=== PATIENT | male | born 1945 | race Caucasian/White ===

== ENCOUNTER 2018-06-20 15:00 | Inpatient (IN) | payer MEDICARE ==
[~2018-06-20] VITALS: Ht 182.9 cm; Wt 127.0 kg
[~2018-06-20 15:00] MED LIST: ASPI-611 PO; CLOP75TA15 PO; FURO40TA4 PO; ISOS30TA6 PO; NITR0.4T51 SL; POTA8TAB3 PO; TAMS0.4C32 PO
[2018-06-20] MEDS ORDERED: magnesium hydroxide 30ml (MOM) UD suspension PO PRN (15:40)
[2018-06-20] MEDS ORDERED: morphine 2 MG/ML inj. syringe IV PRN (15:40)
[2018-06-20] MEDS ORDERED: acetaminophen 325mg tablet PO PRN (15:40)
[2018-06-20] MEDS ORDERED: ondansetron/PF 4mg/2ml inj IV PRN (15:40)
[2018-06-20] MEDS ORDERED: HYDROcodone/acetaminophen 5mg/325mg tablet PO PRN (15:40)
[2018-06-20] MEDS ORDERED: mag hydrox/Alum hydrox/simeth 30ml oral suspension PO PRN (15:40)
[2018-06-20] MEDS ORDERED: nitroGLYCERIN 0.4mg SUBLingual tab SL PRN (15:50)
[2018-06-20 16:31] VITALS: BP 164/85
[2018-06-20] MEDS ORDERED: FURO20TA4 PO (16:51)
[2018-06-20] MEDS ORDERED: ZOLP10TA PO (17:26)
[2018-06-20 17:40] LABS: BASOPHILS % (AUTO) 0.3 % (0-1); EOSINOPHILS # (AUTO) 0.1 X10'3 (0-0.9); EOSINOPHILS % (AUTO) 2.1 % (0-6); HEMATOCRIT 50.2 % (42.0-52.0); LYMPHOCYTES # (AUTO) 0.9 X10'3 (1.1-4.8); LYMPHOCYTES % (AUTO) 16.1 % (21-51); MEAN CORPUSCULAR HEMOGLOBIN 30.4 PG (27.0-31.0); MEAN CORPUSCULAR HGB CONC 33.8 % (33.0-36.5); MEAN CORPUSCULAR VOLUME 89.7 FL (78-98); MEAN PLATELET VOLUME 7.6 FL (7.4-10.4); MONOCYTES # (AUTO) 0.6 X10'3 (0-0.9); MONOCYTES % (AUTO) 9.8 % (2-12); NEUTROPHILS # (AUTO) 4.1 X10'3 (1.8-7.7); NEUTROPHILS % (AUTO) 71.7 % (42-75); PLATELET COUNT 356 X10'3 (140-440); RED BLOOD COUNT 5.59 X10'6 (4.70-6.10); RED CELL DISTRIBUTION WIDTH 15.7 % (11.5-14.5); WHITE BLOOD COUNT 5.8 X10'3 (4.5-11.0)
[2018-06-20 17:58] LABS: ALANINE AMINOTRANSFERASE 26 U/L (12-78); ALBUMIN 3.5 G/DL (3.4-5.0); ALBUMIN/GLOBULIN RATIO 0.8 (1.1-1.5); ALKALINE PHOSPHATASE 87 IU/L (46-116); ANION GAP 8 (8-16); ASPARTATE AMINO TRANSFERASE 21 U/L (10-37); BILIRUBIN,TOTAL 0.9 MG/DL (0.1-1.0); BLOOD UREA NITROGEN 17 MG/DL (7-18); BUN/CREATININE RATIO 11.1 (5.4-32.0); CALCIUM 8.6 MG/DL (8.5-10.1); CHLORIDE 105 MMOL/L (99-107); CREATININE 1.53 MG/DL (0.60-1.10); GLUCOSE 90 MG/DL (70-104); MAGNESIUM 2.2 MG/DL (1.5-2.4); POTASSIUM 4.4 MMOL/L (3.5-5.1); SODIUM 140 MMOL/L (135-145); TOTAL CARBON DIOXIDE 27.5 MMOL/L (24-32); TOTAL PROTEIN 7.9 G/DL (6.4-8.2); TROPONIN I < 0.04 NG/ML (0.0-0.05); eGFR 45 ML/MIN
[2018-06-20 19:00] VITALS: BP 153/67
[2018-06-20] MEDS: aspirin 81mg tablet.DR PO SCH (20:02)
[2018-06-20 23:00] VITALS: BP 143/70
[2018-06-21] VITALS (7 sets, daily range): BP systolic 124–153; BP diastolic 46–77
[2018-06-21 05:01] LABS: BASOPHILS % (AUTO) 0.4 % (0-1); EOSINOPHILS # (AUTO) 0.2 X10'3 (0-0.9); EOSINOPHILS % (AUTO) 2.9 % (0-6); HEMATOCRIT 47.6 % (42.0-52.0); HEMOGLOBIN 16.1 g/dl (14.0-17.9); LYMPHOCYTES # (AUTO) 1.1 X10'3 (1.1-4.8); LYMPHOCYTES % (AUTO) 18.7 % (21-51); MEAN CORPUSCULAR HEMOGLOBIN 30.3 PG (27.0-31.0); MEAN CORPUSCULAR HGB CONC 33.7 % (33.0-36.5); MEAN CORPUSCULAR VOLUME 89.8 FL (78-98); MEAN PLATELET VOLUME 7.8 FL (7.4-10.4); MONOCYTES # (AUTO) 0.6 X10'3 (0-0.9); MONOCYTES % (AUTO) 9.8 % (2-12); NEUTROPHILS # (AUTO) 3.9 X10'3 (1.8-7.7); NEUTROPHILS % (AUTO) 68.2 % (42-75); PLATELET COUNT 309 X10'3 (140-440); RED BLOOD COUNT 5.31 X10'6 (4.70-6.10); RED CELL DISTRIBUTION WIDTH 15.6 % (11.5-14.5); WHITE BLOOD COUNT 5.7 X10'3 (4.5-11.0)
[2018-06-21 05:28] LABS: ALBUMIN 3.2 G/DL (3.4-5.0); ANION GAP 13 (8-16); BLOOD UREA NITROGEN 19 MG/DL (7-18); BUN/CREATININE RATIO 14.7 (5.4-32.0); CALCIUM 8.6 MG/DL (8.5-10.1); CHLORIDE 105 MMOL/L (99-107); CHOLESTEROL 194 MG/DL (0-200); CREATININE 1.29 MG/DL (0.60-1.10); GLUCOSE 115 MG/DL (70-104); HDL CHOLESTEROL 49 MG/DL (35-60); LDL CHOLESTEROL 136 MG/DL (50-100); SODIUM 142 MMOL/L (135-145); TOTAL CARBON DIOXIDE 24.1 MMOL/L (24-32); TRIGLYCERIDES 85 MG/DL (20-135); eGFR 55 ML/MIN
[2018-06-21] MEDS: aspirin 81mg tablet.DR PO SCH (08:00)
[2018-06-21] MEDS ORDERED: enoxaparin 40mg/0.4ml syringe SUBCUT SCH (08:00)
[2018-06-21] MEDS ORDERED: fentaNYL/PF 50MCG/1 ML 2ML syringe ONE (08:13)
[2018-06-21] MEDS ORDERED: midazolam 2 mg/2 ml injection ONE ×2 (08:13→09:07)
[2018-06-21] MEDS ORDERED: iohexol 350 MG/ML 50ML vial IV ONE (08:13)
[2018-06-21] MEDS ORDERED: iohexol 350MG/ML 100ml bottle IV ONE ×2 (08:13→09:28)
[2018-06-21] MEDS ORDERED: LIDOcaine 1% w/EPI 1:100,000 30ml vial (MDV) ONE (08:13)
[2018-06-21] MEDS ORDERED: heparin 1,000unit/ml 10ml vial 10 ML ONE (09:24)
[2018-06-21] MEDS ORDERED: ondansetron/PF 4mg/2ml inj ONE (09:55)
[2018-06-21] MEDS ORDERED: proCHLORperazine 10 MG/2 ml inj ONE (09:55)
[2018-06-21] MEDS ORDERED: nitroGLYCERIN-Tridil 50MG/D5W 250 ML IV ONE (09:59)
[2018-06-21] MEDS: normal saline 1000ml 1,000 ML IV SCH ×2 (11:26→16:20)
[2018-06-21] MEDS ORDERED: zolpidem 5mg tablet PO PRN (11:30)
[2018-06-21] MEDS ORDERED: isosorbide mononitrate 30mg tab.SR.24H PO SCH (12:00)
[2018-06-21] MEDS ORDERED: clopidogrel 75mg tablet PO SCH (12:00)
[2018-06-21] MEDS ORDERED: tamsulosin 0.4mg capsule PO SCH (12:00)
[2018-06-21] MEDS ORDERED: furosemide 20MG tablet PO SCH (12:00)
[2018-06-21] MEDS ORDERED: potassium chloride 8mEq ER tablet PO SCH (12:00)
[2018-06-21] MEDS ORDERED: carVEDilol 3.125mg tablet PO SCH (14:25)
[2018-06-21] MEDS ORDERED: COR3.125T PO (14:35)
[2018-06-21] MEDS ORDERED: NIAC-23 PO (14:35)
== END 2018-06-21 16:53 | disposition home or self-care (01) | DRG 247 ==
LOC: PCU 3S 15:00
PROVIDERS: ADMIT Internal Medicine; ATTEND Internal Medicine
PROC: 4A023N7 Measurement of Cardiac Sampling and Pressure, Left Heart, Percutaneous Approach (ICD-10-PCS; principal; 2018-06-21)
PROC: 027034Z Dilation of Coronary Artery, One Artery with Drug-eluting Intraluminal Device, Percutaneous Approach (ICD-10-PCS; 2018-06-21)
PROC: 02703ZZ Dilation of Coronary Artery, One Artery, Percutaneous Approach (ICD-10-PCS; 2018-06-21)
PROC: B2111ZZ Fluoroscopy of Multiple Coronary Arteries using Low Osmolar Contrast (ICD-10-PCS; 2018-06-21)
PROC: B2151ZZ Fluoroscopy of Left Heart using Low Osmolar Contrast (ICD-10-PCS; 2018-06-21)
PROC: B2131ZZ Fluoroscopy of Multiple Coronary Artery Bypass Grafts using Low Osmolar Contrast (ICD-10-PCS; 2018-06-21)
DX: T82.857A Stenosis of other cardiac prosthetic devices, implants and grafts, initial encounter (principal); I25.110 Atherosclerotic heart disease of native coronary artery with unstable angina pectoris; E66.01 Morbid (severe) obesity due to excess calories; E78.00 Pure hypercholesterolemia, unspecified; E78.5 Hyperlipidemia, unspecified; E86.0 Dehydration; I11.0 Hypertensive heart disease with heart failure; I50.9 Heart failure, unspecified; Z96.651 Presence of right artificial knee joint; Y71.3 Surgical instruments, materials and cardiovascular devices (including sutures) associated with adverse incidents; Z95.1 Presence of aortocoronary bypass graft; Z95.5 Presence of coronary angioplasty implant and graft; Z88.8 Allergy status to other drugs, medicaments and biological substances; Z79.899 Other long term (current) drug therapy; Z79.82 Long term (current) use of aspirin; Z87.891 Personal history of nicotine dependence; Z80.0 Family history of malignant neoplasm of digestive organs; Z82.0 Family history of epilepsy and other diseases of the nervous system; Z82.49 Family history of ischemic heart disease and other diseases of the circulatory system; Z68.38 Body mass index [BMI] 38.0-38.9, adult; Y92.89 Other specified places as the place of occurrence of the external cause
CPT/HCPCS: 93306; 93458; C9600; 36415; 80048; 80053; 80061; 83036; 83735; 84484; 85025; 87070; 93005; 99152; 99153; A4620; A6257; C1725; C1760; C1769; C1874; C1887; C1894; J0780; J1644; J2250; J2405; J3010; J3490; J7030; Q9967

== ENCOUNTER 2018-12-03 10:14 | Day surgery (SDC) | payer MEDICARE ==
[~2018-12-03] VITALS: Ht 182.9 cm; Wt 133.6 kg
[2018-12-03] VITALS (10 sets, daily range): BP systolic 111–121; BP diastolic 63–76
[~2018-12-03 10:14] MED LIST changes: +COR3.125T PO; +FURO20TA4 PO; -FURO40TA4 PO; +NIAC-23 PO; +ZOLP10TA PO
[2018-12-03] MEDS ORDERED: sod bicarbonate 150mEq in D5W 1,150 ML IV ONE (10:45)
[2018-12-03] MEDS ORDERED: diphenhydrAMINE 25mg capsule PO PRN (10:45)
[2018-12-03] MEDS ORDERED: ISOS30TA6 PO (11:00)
[2018-12-03 11:25] LABS: BASOPHILS % (AUTO) 0.5 % (0-1); EOSINOPHILS # (AUTO) 0.1 X10'3 (0-0.9); HEMATOCRIT 46.9 % (42.0-52.0); HEMOGLOBIN 15.9 g/dl (14.0-17.9); LYMPHOCYTES # (AUTO) 0.6 X10'3 (1.1-4.8); MEAN CORPUSCULAR HEMOGLOBIN 30.9 PG (27.0-31.0); MEAN CORPUSCULAR HGB CONC 33.8 g/dL (33.0-36.5); MEAN CORPUSCULAR VOLUME 91.3 FL (78-98); MEAN PLATELET VOLUME 7.5 FL (7.4-10.4); MONOCYTES # (AUTO) 0.5 X10'3 (0-0.9); MONOCYTES % (AUTO) 9.3 % (2-12); NEUTROPHILS # (AUTO) 3.8 X10'3 (1.8-7.7); NEUTROPHILS % (AUTO) 76.2 % (42-75); PLATELET COUNT 302 X10'3 (140-440); RED BLOOD COUNT 5.14 X10'6 (4.70-6.10); RED CELL DISTRIBUTION WIDTH 14.7 % (11.5-14.5)
[2018-12-03] MEDS ORDERED: normal saline 1000ml 1,000 ML IV SCH (11:30)
[2018-12-03 11:31] LABS: ALBUMIN 3.4 G/DL (3.4-5.0); ANION GAP 7 (8-16); BLOOD UREA NITROGEN 17 MG/DL (7-18); BUN/CREATININE RATIO 13.5 (5.4-32.0); CALCIUM 8.9 MG/DL (8.5-10.1); CHLORIDE 106 MMOL/L (99-107); CREATININE 1.26 MG/DL (0.60-1.10); GLUCOSE 114 MG/DL (70-104); POTASSIUM 4.2 MMOL/L (3.5-5.1); SODIUM 139 MMOL/L (135-145); TOTAL CARBON DIOXIDE 26.1 MMOL/L (24-32); eGFR 56 ML/MIN
[2018-12-03 11:35] LABS: PROTHROMBIN TIME 10.5 SECONDS (9.0-12.0)
[2018-12-03] MEDS ORDERED: proCHLORperazine 10 MG/2 ml inj ONE (13:45)
[2018-12-03] MEDS ORDERED: midazolam 2 mg/2 ml injection ONE (13:45)
[2018-12-03] MEDS ORDERED: fentaNYL/PF 50MCG/1 ML 2ML syringe ONE (13:45)
[2018-12-03] MEDS ORDERED: LIDOcaine 1% (10mg/ml)w/preservative injection 20ml MDV ONE (13:52)
[2018-12-03] MEDS ORDERED: iohexol 350 MG/1 ML 200ml bottle ONE (13:52)
[2018-12-03] MEDS ORDERED: iohexol 350 MG/ML 50ML vial IV ONE (13:52)
[2018-12-03] MEDS ORDERED: heparin 1,000unit/ml 10ml vial 10 ML ONE (14:16)
[2018-12-03] MEDS ORDERED: iohexol 350MG/ML 100ml bottle IV ONE (14:37)
[2018-12-03] MEDS ORDERED: verapamil 2.5 mg/ml inj IV ONE (14:46)
[2018-12-03] MEDS ORDERED: clopidogrel 300mg tablet ONE (14:53)
--- NOTE | 2018-12-03 16:20 | NUR ---
Problems reprioritized. Patient report given, questions answered & plan of care reviewed with AARON WILLARD.
== END 2018-12-03 19:00 | disposition home or self-care (01) ==
LOC: SSTAY O 10:14
PROVIDERS: ATTEND Internal Medicine Cardiovascular Disease
DX: I25.119 Atherosclerotic heart disease of native coronary artery with unspecified angina pectoris (principal); I10 Essential (primary) hypertension; E11.9 Type 2 diabetes mellitus without complications; E78.5 Hyperlipidemia, unspecified; G47.30 Sleep apnea, unspecified; Z86.718 Personal history of other venous thrombosis and embolism
CPT/HCPCS: 36415; 80048; 83735; 85025; 85610; 93005; 93459; 99152; 99153; A6257; C1874; C9600; J0780; J1644; J2001; J2250; J3010; J7030; Q0163; Q9967; 92920; A4620; C1725; C1760; C1769; C1894

== ENCOUNTER 2019-05-10 09:21 | Day surgery (SDC) | payer MEDICARE ==
[~2019-05-10] VITALS: Ht 182.9 cm; Wt 132.8 kg
[2019-05-10] VITALS (9 sets, daily range): BP systolic 102–118; BP diastolic 57–71
[~2019-05-10 09:21] MED LIST changes: -COR3.125T PO; -NIAC-23 PO; -POTA8TAB3 PO; -ZOLP10TA PO
[2019-05-10] MEDS ORDERED: diphenhydrAMINE 25mg capsule PO PRN (09:45)
[2019-05-10] MEDS ORDERED: normal saline 1,000 ML IV SCH (09:45)
[2019-05-10] MEDS ORDERED: LISI10TA4 PO (10:35)
[2019-05-10 10:43] LABS: BASOPHILS % (AUTO) 0.4 % (0-1); EOSINOPHILS # (AUTO) 0.1 X10'3 (0-0.9); EOSINOPHILS % (AUTO) 1.2 % (0-6); HEMATOCRIT 42.6 % (42.0-52.0); HEMOGLOBIN 14.2 g/dl (14.0-17.9); LYMPHOCYTES # (AUTO) 0.5 X10'3 (1.1-4.8); LYMPHOCYTES % (AUTO) 9.1 % (21-51); MEAN CORPUSCULAR HEMOGLOBIN 30.4 PG (27.0-31.0); MEAN CORPUSCULAR HGB CONC 33.3 g/dL (33.0-36.5); MEAN CORPUSCULAR VOLUME 91.3 FL (78-98); MEAN PLATELET VOLUME 7.4 FL (7.4-10.4); MONOCYTES # (AUTO) 0.4 X10'3 (0-0.9); MONOCYTES % (AUTO) 7.8 % (2-12); NEUTROPHILS # (AUTO) 4.6 X10'3 (1.8-7.7); NEUTROPHILS % (AUTO) 81.5 % (42-75); PLATELET COUNT 263 X10'3 (140-440); RED BLOOD COUNT 4.66 X10'6 (4.70-6.10); RED CELL DISTRIBUTION WIDTH 15.3 % (11.5-14.5); WHITE BLOOD COUNT 5.7 X10'3 (4.5-11.0)
[2019-05-10] MEDS ORDERED: midazolam 2 mg/2 ml injection ONE ×3 (10:50→11:23)
[2019-05-10] MEDS ORDERED: fentaNYL/PF 50MCG/1 ML 2ML syringe ONE (10:50)
[2019-05-10] MEDS ORDERED: iohexol 350 MG/1 ML 200ml bottle ONE (10:50)
[2019-05-10] MEDS ORDERED: iohexol 350 MG/ML 50ML vial IV ONE (10:50)
[2019-05-10] MEDS ORDERED: LIDOcaine 1% (10mg/ml)w/preservative injection 20ml MDV ONE (10:50)
[2019-05-10 10:54] LABS: ALBUMIN 3.3 G/DL (3.4-5.0); ANION GAP 9 (8-16); BLOOD UREA NITROGEN 22 MG/DL (7-18); BUN/CREATININE RATIO 15.3 (5.4-32.0); CALCIUM 8.7 MG/DL (8.5-10.1); CHLORIDE 105 MMOL/L (99-107); CREATININE 1.44 MG/DL (0.60-1.10); GLUCOSE 118 MG/DL (70-104); MAGNESIUM 2.3 MG/DL (1.5-2.4); POTASSIUM 4.6 MMOL/L (3.5-5.1); SODIUM 139 MMOL/L (135-145); eGFR 48 ML/MIN
[2019-05-10] MEDS ORDERED: heparin 1,000unit/ml 10ml vial 10 ML ONE (11:16)
[2019-05-10] MEDS ORDERED: clopidogrel 300mg tablet ONE (11:24)
[2019-05-10] MEDS ORDERED: nitroGLYCERIN-Tridil 50MG/D5W 250 ML IV ONE (11:42)
[2019-05-10] MEDS ORDERED: HYDROcodone/acetaminophen 5mg/325mg tablet PO PRN (12:40)
[2019-05-10] MEDS ORDERED: HYDROcodone/acetaminophen 10/325mg tab PO PRN (12:40)
== END 2019-05-10 15:30 | disposition home or self-care (01) ==
LOC: SSTAY O 09:21
PROVIDERS: ATTEND Internal Medicine Cardiovascular Disease
DX: I25.119 Atherosclerotic heart disease of native coronary artery with unspecified angina pectoris (principal); I25.82 Chronic total occlusion of coronary artery; Z79.01 Long term (current) use of anticoagulants; Z79.899 Other long term (current) drug therapy
CPT/HCPCS: 36415; 80048; 83735; 85025; 85610; 93005; 93458; 99152; 99153; C1725; C1769; C1874; C1894; C9600; J1644; J2001; J2250; J3010; J7030; Q9967; A4620; A4663; A6258; C1760; J3490

== ENCOUNTER 2019-08-16 05:53 | Day surgery (SDC) | payer MEDICARE ==
[~2019-08-16] VITALS: Ht 182.9 cm; Wt 140.4 kg
[2019-08-16] VITALS (9 sets, daily range): BP systolic 117–134; BP diastolic 72–90
[~2019-08-16 05:53] MED LIST changes: +LISI10TA4 PO
[2019-08-16] MEDS ORDERED: normal saline 1,000 ML IV SCH (06:15)
[2019-08-16] MEDS ORDERED: diphenhydrAMINE 25mg capsule PO PRN (06:15)
[2019-08-16 06:46] LABS: BASOPHILS # (AUTO) 0.1 X10'3 (0-0.2); BASOPHILS % (AUTO) 0.8 % (0-1); EOSINOPHILS # (AUTO) 0.1 X10'3 (0-0.9); EOSINOPHILS % (AUTO) 1.2 % (0-6); HEMATOCRIT 46.2 % (42.0-52.0); HEMOGLOBIN 15.7 g/dl (14.0-17.9); LYMPHOCYTES # (AUTO) 0.7 X10'3 (1.1-4.8); LYMPHOCYTES % (AUTO) 8.4 % (21-51); MEAN CORPUSCULAR HEMOGLOBIN 31.9 PG (27.0-31.0); MEAN CORPUSCULAR HGB CONC 34.1 g/dL (33.0-36.5); MEAN CORPUSCULAR VOLUME 93.5 FL (78-98); MEAN PLATELET VOLUME 7.9 FL (7.4-10.4); MONOCYTES # (AUTO) 0.6 X10'3 (0-0.9); MONOCYTES % (AUTO) 7.3 % (2-12); NEUTROPHILS # (AUTO) 6.7 X10'3 (1.8-7.7); NEUTROPHILS % (AUTO) 82.3 % (42-75); PLATELET COUNT 281 X10'3 (140-440); RED BLOOD COUNT 4.94 X10'6 (4.70-6.10); WHITE BLOOD COUNT 8.1 X10'3 (4.5-11.0)
[2019-08-16] MEDS ORDERED: ALIR150P (06:53)
[2019-08-16 07:03] LABS: ALBUMIN 3.4 G/DL (3.4-5.0); ANION GAP 12 (8-16); BLOOD UREA NITROGEN 29 MG/DL (7-18); BUN/CREATININE RATIO 17.3 (5.4-32.0); CALCIUM 8.5 MG/DL (8.5-10.1); CHLORIDE 104 MMOL/L (99-107); CREATININE 1.68 MG/DL (0.60-1.10); GLUCOSE 142 MG/DL (70-104); MAGNESIUM 2.1 MG/DL (1.5-2.4); POTASSIUM 4.5 MMOL/L (3.5-5.1); SODIUM 138 MMOL/L (135-145); TOTAL CARBON DIOXIDE 22.3 MMOL/L (24-32); eGFR 40 ML/MIN
[2019-08-16] MEDS ORDERED: fentaNYL/PF 50MCG/1 ML 2ML syringe ONE (07:42)
[2019-08-16] MEDS ORDERED: midazolam 2 mg/2 ml injection ONE ×2 (07:42→08:22)
[2019-08-16] MEDS ORDERED: iohexol 350MG/ML 100ml bottle IV ONE (07:42)
[2019-08-16] MEDS ORDERED: LIDOcaine 1% (10mg/ml)w/preservative injection 20ml MDV ONE (07:42)
[2019-08-16] MEDS ORDERED: iohexol 350 MG/ML 50ML vial IV ONE (07:42)
[2019-08-16] MEDS ORDERED: heparin 1,000unit/ml 10ml vial 10 ML ONE (08:41)
[2019-08-16] MEDS ORDERED: iohexol 350 MG/1 ML 200ml bottle ONE (08:42)
[2019-08-16] MEDS ORDERED: verapamil 2.5 mg/ml inj IV ONE (08:56)
[2019-08-16] MEDS ORDERED: normal saline 1000ml 1,000 ML IV SCH (10:15)
[2019-08-16] MEDS ORDERED: HYDROcodone/acetaminophen 5mg/325mg tablet PO PRN (10:15)
[2019-08-16] MEDS ORDERED: ondansetron/PF 4mg/2ml inj IV PRN (10:15)
[2019-08-16] MEDS ORDERED: proCHLORperazine 10 MG/2 ml inj IV PRN (10:20)
[2019-08-16] MEDS ORDERED: HYDROcodone/acetaminophen 10/325mg tab PO PRN (10:20)
== END 2019-08-16 13:00 | disposition home or self-care (01) ==
LOC: SSTAY O 05:53
PROVIDERS: ATTEND Internal Medicine Cardiovascular Disease
DX: I25.119 Atherosclerotic heart disease of native coronary artery with unspecified angina pectoris (principal); I34.0 Nonrheumatic mitral (valve) insufficiency; E11.9 Type 2 diabetes mellitus without complications; Z87.891 Personal history of nicotine dependence; Z79.84 Long term (current) use of oral hypoglycemic drugs
CPT/HCPCS: 36415; 80048; 83735; 85025; 85610; 92920; 92921; 93459; 99152; 99153; C1725; C1769; C1894; J1644; J2001; J2250; J3010; J7030; Q0163; Q9967; A4620; A6258; C1760

== ENCOUNTER 2019-11-22 08:05 | Day surgery (SDC) | payer MEDICARE ==
[~2019-11-22] VITALS: Ht 182.9 cm; Wt 141.3 kg
[2019-11-22] VITALS (10 sets, daily range): BP systolic 102–142; BP diastolic 59–89
[~2019-11-22 08:05] MED LIST changes: +ALIR150P; -LISI10TA4 PO
[2019-11-22] MEDS ORDERED: LIDOcaine 1% (10mg/ml)w/preservative injection 20ml MDV ONE (08:07)
[2019-11-22] MEDS ORDERED: iohexol 350MG/ML 100ml bottle IV ONE ×2 (08:07→09:59)
[2019-11-22] MEDS ORDERED: normal saline 1000ml 1,000 ML IV SCH (08:30)
[2019-11-22] MEDS ORDERED: diphenhydrAMINE 25mg capsule PO ONE (08:30)
[2019-11-22] MEDS ORDERED: ISOS30TA6 PO (08:37)
[2019-11-22] MEDS ORDERED: RANO500T5 PO (08:37)
[2019-11-22] MEDS ORDERED: TORS100T15 PO (08:37)
[2019-11-22] MEDS ORDERED: POTA8CAP20 PO (08:37)
[2019-11-22 08:51] LABS: HEMOGLOBIN 17.3 g/dl (14.0-17.9); MONOCYTES # (AUTO) 0.8 X10'3 (0-0.9)
[2019-11-22 08:53] LABS: BASOPHILS % (AUTO) 0.2 % (0-1); EOSINOPHILS # (AUTO) 0.2 X10'3 (0-0.9); EOSINOPHILS % (AUTO) 1.6 % (0-6); HEMATOCRIT 51.5 % (42.0-52.0); LYMPHOCYTES # (AUTO) 0.9 X10'3 (1.1-4.8); LYMPHOCYTES % (AUTO) 9.2 % (21-51); MEAN CORPUSCULAR HEMOGLOBIN 31.2 PG (27.0-31.0); MEAN CORPUSCULAR HGB CONC 33.6 g/dL (33.0-36.5); MEAN CORPUSCULAR VOLUME 92.9 FL (78-98); MEAN PLATELET VOLUME 8.5 FL (7.4-10.4); MONOCYTES % (AUTO) 8.2 % (2-12); NEUTROPHILS # (AUTO) 7.7 X10'3 (1.8-7.7); NEUTROPHILS % (AUTO) 80.8 % (42-75); RED BLOOD COUNT 5.54 X10'6 (4.70-6.10); RED CELL DISTRIBUTION WIDTH 17.3 % (11.5-14.5); WHITE BLOOD COUNT 9.5 X10'3 (4.5-11.0)
[2019-11-22] MEDS ORDERED: fentaNYL/PF 50MCG/1 ML 2ML syringe ONE (09:00)
[2019-11-22] MEDS ORDERED: midazolam 2 mg/2 ml injection ONE ×2 (09:00→09:30)
[2019-11-22] MEDS ORDERED: heparin 1,000unit/ml 10ml vial 10 ML ONE (09:00)
[2019-11-22] MEDS ORDERED: iohexol 350 MG/ML 50ML vial IV ONE ×2 (09:00→10:32)
[2019-11-22 09:07] LABS: ALBUMIN 3.5 G/DL (3.4-5.0); ANION GAP 9 (8-16); BLOOD UREA NITROGEN 28 MG/DL (7-18); BUN/CREATININE RATIO 17.8 (5.4-32.0); CHLORIDE 102 MMOL/L (99-107); CREATININE 1.57 MG/DL (0.60-1.10); GLUCOSE 136 MG/DL (70-104); MAGNESIUM 2.7 MG/DL (1.5-2.4); POTASSIUM 4.7 MMOL/L (3.5-5.1); SODIUM 139 MMOL/L (135-145); TOTAL CARBON DIOXIDE 28.5 MMOL/L (24-32); eGFR 44 ML/MIN
[2019-11-22 09:12] LABS: PLATELET COUNT 242 X10'3 (140-440)
[2019-11-22] MEDS ORDERED: nitroGLYCERIN-Tridil 50MG/D5W 250 ML IV ONE (10:12)
[2019-11-22] MEDS ORDERED: clopidogrel 300mg tablet ONE (10:39)
[2019-11-22] MEDS ORDERED: ondansetron/PF 4mg/2ml inj IV PRN (11:25)
[2019-11-22] MEDS ORDERED: HYDROcodone/acetaminophen 10/325mg tab PO PRN (11:25)
[2019-11-22] MEDS ORDERED: proCHLORperazine 10 MG/2 ml inj IV PRN (11:25)
[2019-11-22] MEDS ORDERED: HYDROcodone/acetaminophen 5mg/325mg tablet PO PRN (11:25)
[2019-11-22] MEDS ORDERED: furosemide 40mg/4ml inj IV ONE (12:00)
== END 2019-11-22 15:37 | disposition home or self-care (01) ==
LOC: SSTAY O 08:05
PROVIDERS: ATTEND Internal Medicine Cardiovascular Disease
DX: R07.9 Chest pain, unspecified (principal); I27.9 Pulmonary heart disease, unspecified; E78.5 Hyperlipidemia, unspecified; E11.9 Type 2 diabetes mellitus without complications; Z87.891 Personal history of nicotine dependence; Z95.1 Presence of aortocoronary bypass graft
CPT/HCPCS: 80048; 83735; 85025; 85610; 93005; 93460; 99152; 99153; C1725; C1769; C1874; C1894; C9600; J1644; J1940; J2001; J2250; J3010; Q9967; 92921; A4620; A6258; C1751; C1760; J3490